=== PATIENT | male | born 1950 | race Caucasian/White ===

== ENCOUNTER 2016-08-20 06:02 | Day surgery (SDC) | payer MEDICARE, BC ==
[2016-08-17 14:16] LABS: HEMATOCRIT 44.7 % (40.0-51.0); HEMOGLOBIN 15.2 g/dL (13.6-17.8)
[2016-08-17 14:29] LABS: BUN (BLOOD UREA NITROGEN) 22 MG/DL (6-23); CALCIUM, SERUM 9.5 MG/DL (8.5-10.4); CHLORIDE, SERUM 103 MMOL/L (96-112); CO2 (CARBON DIOXIDE) 29 MMOL/L (24-34); CREATININE 1.22 MG/DL (0.70-1.30); GFR AFRICAN AMERICAN 71 ML/MIN (>=60); GFR NON AFRICAN AMERICAN 61 ML/MIN (>=60); GLUCOSE, SERUM 109 MG/DL (60-99); POTASSIUM, SERUM 3.9 MMOL/L (3.5-5.3); SODIUM, SERUM 140 MMOL/L (135-148)
--- NOTE | ~2016-08-20 | OP ---
Record Of Operation [facility] [address] [place]. [address] NAME: HA LAKE : 48 STATUS : [facility]#: [id number] AGE: 66 ADM/REG DATE : 08/20/16 MR#: [id number] REPORT SERV DATE: 08/23/16 DICTATED BY: JADEN NOGUEIRA DATE: 08/20/16 REPORT STATUS : Draft TRANSCRIBED BY: MODNicole DATE: 08/20/16 DATE OF PROCEDURE: 08/20/2016 PREOPERATIVE DIAGNOSES: 1. Chronic nasal obstruction. 2. Septal deviation. 3. Bilateral turbinate hypertrophy. 4. Left chronic maxillary sinusitis. POSTOPERATIVE DIAGNOSES: 1. Chronic nasal obstruction. 2. Septal deviation. 3. Bilateral turbinate hypertrophy. 4. Left chronic maxillary sinusitis. PROCEDURE: 1. Septoplasty. 2. Bilateral inferior turbinoplasty. 3. Left endoscopic maxillary sinus antrostomy. ANESTHESIA: General. COMPLICATIONS: None. COUNTS: All counts were correct following the procedure. BLOOD LOSS: 15 mL. PREOPERATIVE INFORMED CONSENT: We discussed the risks and benefits of surgery including, but not limited to, bleeding, infection, possible saddle nose deformity, possible septal perforation, possible persistent nasal obstruction despite surgery, possible need for revision surgery, possible ocular injury including blindness, possible CSF leak, possible persistent sinus disease despite surgery. Consent is on the chart. PROCEDURE IN DETAIL: The patient was brought to the operating suite and placed on the operating table in supine position. General endotracheal anesthesia was initiated without incident. The septum, turbinate, inferior turbinates, and left middle turbinate and uncinate processes were injected with approximately 15 mL of 1% lidocaine and 1:100,000 epinephrine for hemostasis. Following this, the left middle meatus and the inferior portion of the uncinate process were taken down using pediatric backbiting forceps and the remainder of the uncinate process was removed using the Xomed sinus shaver, and the antrostomy of the maxillary sinus was carefully enlarged using the Xomed sinus shaver. The patient was brought to the operating suite and placed on the operating table in the supine position. General endotracheal anesthesia was initiated without incident. The patient's head and neck were cleaned, prepped and draped in the usual sterile fashion. Record Of Operation [facility] [address] [place]. [address] NAME: HA LAKE : 48 STATUS : [facility] PAT#: [id number] AGE: 66 ADM/REG DATE : 08/20/16 MR#: [id number] REPORT SERV DATE: 08/23/16 DICTATED BY: JADEN NOGUEIRA DATE: 08/20/16 REPORT STATUS : Draft TRANSCRIBED BY: ONESIMO DATE: 08/20/16 Following this, both sides of the septum and inferior turbinates were injected with 1% Lidocaine with 1:100,000 epinephrine for hemostasis. Approximately 12.0 cc. were used. Following this, a #15 blade scalpel was used to performed a left hemitransfixion incision down to the underlying septal cartilage. A mucoperichondrial flap was raised along the left side of the nasal septum using Eaton and Morehouse elevators. The bony cartilaginous junction was using the Morehouse elevator and then the mucoperiosteum was raised off both sides of the bony nasal septum. A thin strip of the cartilaginous septum along the maxillary crest was removed using a #15 blade scalpel and a Kelly elevator, allowing the cartilaginous septum to swing back in the midline. The maxillary crest was exposed using the Schultz elevator and removed using the 6.0 mm. straight osteotome. The deviated bony nasal septum was taken down using open Trey-Herrera forceps, as well as Daina forceps. Once the septal deviation had been corrected, the left hemitransfixion incision was closed using interrupted 4-0 chromic suture. The Xomed turbinate shaver was then used to perform submucous resection of both inferior turbinates without difficulty and both inferior turbinates were infractured and both the medial and lateral surfaces were cauterized using the Harmonic scalpel. Both inferior turbinates were then outfractured. Breathe-Easy septal splints were then placed on either side of the nasal septum and sutured in the midline using 2-0 nylon suture. The nasopharynx was suctioned free of any blood clots. The patient was awakened from anesthesia and taken to the recovery room in stable condition. MELLISA/ONESMIO Jaden Nogueira M.D. / [id number] CC: Ariana Mcnally MD
[~2016-08-20 06:02] MED LIST: ASA5GR PO; LIPITOR80 MG PO; PRIN2.5 PO; PROTONIX PO; TOPXL25 PO
== END 2016-08-20 23:59 | disposition home or self-care (01) ==
LOC: MSC 06:02
PROVIDERS: Otolaryngology
PROC: 09SM0ZZ Reposition Nasal Septum, Open Approach (ICD-10-PCS; principal; 2016-08-20 06:45)
PROC: 09QL8ZZ Repair Nasal Turbinate, Via Natural or Artificial Opening Endoscopic (ICD-10-PCS; 2016-08-20 06:45)
PROC: 099R4ZZ Drainage of Left Maxillary Sinus, Percutaneous Endoscopic Approach (ICD-10-PCS; 2016-08-20 06:45)
DX: J32.8 Other chronic sinusitis (principal); J34.89 Other specified disorders of nose and nasal sinuses; J34.2 Deviated nasal septum; J34.3 Hypertrophy of nasal turbinates; J32.0 Chronic maxillary sinusitis; I25.10 Atherosclerotic heart disease of native coronary artery without angina pectoris; Z95.5 Presence of coronary angioplasty implant and graft; T75.3XXA Motion sickness, initial encounter; I10 Essential (primary) hypertension; E78.00 Pure hypercholesterolemia, unspecified; K21.9 Gastro-esophageal reflux disease without esophagitis; Z79.82 Long term (current) use of aspirin; Z79.899 Other long term (current) drug therapy
CPT/HCPCS: 80048; 85014; 85018; 88305; 93005; A9270-GY; J0690; J2250; J2405; J2710; J3010